=== PATIENT | male | born 1995 | race African-American/Black ===

== ENCOUNTER 2021-02-03 01:39 | Observation (INO) ==
[2021-02-03] MEDS ORDERED: LACTATED RINGERS 1,000 ML IV STA (02:02)
[2021-02-03] MEDS ORDERED: DIPHTHERIA/TETANUS ADULT VACCINE 0.5 ML SYRINGE IM ONE (02:02)
[2021-02-03 02:12] LABS: Basophils % 0.6 % (0.0-0.8); Eosinophils % 0.6 % (0.00-10.9); Hematocrit 44.1 VOL% (42.0-52.0); Hemoglobin 14.8 GM/DL (14.0-18.0); Immature Granulocytes % 0.4 %; Immature Granulocytes Absolute 0.03 #; Lymphocytes # 2.1 10*3/uL (1.4-4.0); Lymphocytes % 30.1 % (21.2-54.2); Mean Corpuscular HGB Conc 33.6 GM/DL (32-36); Mean Platelet Volume 11.7 FL (9.6-12.0); Monocytes % 6.5 % (1.7-12.7); Neutrophils % 61.8 % (38.7-73.9); Platelet Count 188 T/CUMM (130-400); Red Blood Count 4.74 MC/CUMM (3.8-5.5); Red Cell Distribution Width 13.2 % (9.3-17.3); White Blood Count 7.1 T/CUMM (4-12)
[2021-02-03 02:22] LABS: Bilirubin,Urine Negative (Negative); Blood, Urine Moderate mg/dL (Negative); Glucose,Urine (UA) Negative (Negative); Ketones,Urine Negative (Negative); Nitrite,Urine Negative (Negative); Protein,Urine Negative; RBC,Urine <1 /HPF (0-4); Urine Appearance CLEAR (Clear); Urine Color Straw (Yellow); Urine Specific Gravity 1.001 (1.001-1.035); Urine Urobilinogen < 2.0 EU/DL (0.2-1.0)
[2021-02-03 02:27] LABS: Albumin 3.8 G/DL (3.4-5.0); Bilirubin,Total 0.7 MG/DL (0.20-1.00); Calcium 8.6 MG/DL (8.5-10.1); Osmolality,Calculated 279.1 MOS/KG (273-304); PT Patient Result 11.6 SECS (10.5-12.0); Partial Thromboplastin Time 31.4 SECS (23.9-33.8); Potassium 3.2 MMOL/L (3.5-5.1); Total Protein 7.9 G/DL (6.4-8.2)
[2021-02-03 02:29] LABS: Barbiturates Screen,Urine Negative (Negative); Benzodiazepines Screen,Urine Negative (Negative); Cannabinoid Screen,Urine Negative (Negative); Opiate Screen,Urine Positive (Negative); Phencyclidine Screen,Urine Negative (Negative)
[2021-02-03 03:20] LABS: Platelet Estimate Normal
[2021-02-03] MEDS ORDERED: SODIUM CHLORIDE 0.9% 1,000 ML IV STA (03:55)
[2021-02-03] MEDS ORDERED: POTASSIUM CHLORIDE 20 MEQ TABLET PO STA (03:56)
[2021-02-03] MEDS ORDERED: KETOROLAC 30 MG/1 ML VIAL ONE (05:09)
[2021-02-03] MEDS ORDERED: KETOROLAC 30 MG/1 ML VIAL IV STA (05:17)
[2021-02-03] MEDS ORDERED: ONDANSETRON 4 MG/2 ML VIAL IV PRN (05:24)
[2021-02-03] MEDS ORDERED: GLUCAGON 1 MG VIAL IM PRN (05:24)
[2021-02-03] MEDS ORDERED: MORPHINE 2 MG/1 ML SYRINGE IV PRN (05:24)
[2021-02-03] MEDS ORDERED: DEXTROSE 50% 25 GM/50 ML VIAL IV PRN (05:24)
[2021-02-03] MEDS ORDERED: THIAMINE INJ 100 MG, FOLIC ACID INJ 1 MG, MULTIVITAMIN INJ 10 ML in SODIUM CHLORIDE 0.9... IV ONE (06:00)
[2021-02-03 15:32] LABS: Calcium 7.6 MG/DL (8.5-10.1); Osmolality,Calculated 286.6 MOS/KG (273-304); Potassium 3.8 MMOL/L (3.5-5.1)
[2021-02-04 08:24] LABS: Basophils % 0.7 % (0.0-0.8); Eosinophils % 0.7 % (0.00-10.9); Hematocrit 42.7 VOL% (42.0-52.0); Hemoglobin 14.4 GM/DL (14.0-18.0); Immature Granulocytes % 0.6 %; Immature Granulocytes Absolute 0.03 #; Lymphocytes # 1.6 10*3/uL (1.4-4.0); Mean Corpuscular HGB Conc 33.7 GM/DL (32-36); Mean Corpuscular Volume 93.8 FL (87-102); Mean Platelet Volume 10.9 FL (9.6-12.0); Monocytes % 10.3 % (1.7-12.7); Neutrophils % 58.7 % (38.7-73.9); Platelet Count 169 T/CUMM (130-400); Red Blood Count 4.55 MC/CUMM (3.8-5.5); Red Cell Distribution Width 13.2 % (9.3-17.3); White Blood Count 5.3 T/CUMM (4-12)
[2021-02-04 08:50] LABS: Eosinophils 2 % (0-10); Lymphocytes 22 % (20-55); Segmented Neutrophils 68 % (50-85); Total Cells Counted 100
[2021-02-04 08:51] LABS: Atypical Lymphocytes Few; Hypochromasia 1+; Microcytosis Slight
[2021-02-04 08:57] LABS: Albumin 3.5 G/DL (3.4-5.0); Bilirubin,Total 1.4 MG/DL (0.20-1.00); Calcium 8.4 MG/DL (8.5-10.1); Osmolality,Calculated 280.1 MOS/KG (273-304); Potassium 3.7 MMOL/L (3.5-5.1)
[2021-02-04 12:20] VITALS: BP 147/80
== END 2021-02-04 14:05 | disposition home or self-care (01) ==
LOC: EDUNIT# → EDBD → N.EDINP 01:39 → N.ED 01:39 → SUATTDRO 05:24 → N.3E 05:59
PROVIDERS: ADMIT Emergency Medicine; ATTEND Internal Medicine